=== PATIENT | female | born 1980 ===

== ENCOUNTER 2018-04-14 07:15 | Inpatient (IN) | payer OTHER ==
[~2018-04-14] VITALS: Ht 165.1 cm; Wt 95.3 kg
[2018-04-14] MEDS ORDERED: PRENATAL TABLE1 EAC1 PO (09:06)
[2018-04-14] MEDS ORDERED: VALTREX1000 MG PO (09:07)
== END 2018-04-16 13:57 | disposition home or self-care (01) | DRG 775 ==
LOC: LDR 07:15 → OB/GYN 07:15
PROC: 0KQM0ZZ Repair Perineum Muscle, Open Approach (ICD-10-PCS; principal; 2018-04-14)
PROC: 10E0XZZ Delivery of Products of Conception, External Approach (ICD-10-PCS; 2018-04-14)
PROC: 4A1HXCZ Monitoring of Products of Conception, Cardiac Rate, External Approach (ICD-10-PCS; 2018-04-14)
PROC: 4A033R1 Measurement of Arterial Saturation, Peripheral, Percutaneous Approach (ICD-10-PCS; 2018-04-14)
DX: O70.1 Second degree perineal laceration during delivery (principal); Z37.0 Single live birth; Z3A.39 39 weeks gestation of pregnancy; Z22.330 Carrier of Group B streptococcus